=== PATIENT | male | born 1965 | race Caucasian/White ===

== ENCOUNTER 2016-06-05 11:46 | Outpatient (CLI) | payer OTHER ==
--- NOTE | 2016-06-05 12:20 | DIAGNOSTIC IMAGING REPORT ---
PROCEDURE: XR CHEST 2 VIEW INDICATION: CHEST PAIN, initial encounter TECHNIQUE: PA and lateral view. COMPARISON: None. FINDINGS: Lungs are clear. Cardiovascular structures are normal. Bony thorax is unremarkable. IMPRESSION: 1. Negative chest.
== END 2016-06-05 23:00 ==
LOC: XR SRH 11:46
DX: R07.9 Chest pain, unspecified (principal)